=== PATIENT | female | born 1965 | race Caucasian/White ===

== ENCOUNTER 2018-01-31 13:19 | Emergency (ER) | payer BC, OTHER ==
[2018-01-31 13:23] VITALS: BMI 33.0
--- NOTE | 2018-01-31 13:57 | DR.GENAD ---
HPI - PCP Primary Care Physician: Juan Carlos LACEY - HPI Comment HPI Comment: HISTORY BELOW. - Complaint/Symptoms Chief Complaint Doctors Comments: PATIENT IS HAVING FLUTTERING IN [place] AND LT UPPER ABDOMEN AREA. TWO DAYS AGO PRESSURE IN MID LOWER CHEST AREA THAT RESOLVE. NO CHEST PAIN TODAY. BP ELEVATED. WAS NORMAL FEW DAYS AGO WHEN [facility] ON CURRENT MED. TOOK MED TODAY. Chief Complaint:: PT. C/O OF A FLUTTERING SENSATION TO LEFT SIDE OF ABDOMEN. PT. STATES SHE IS NOT SURE IF IT'S COMING FROM HER ABDOMEN OR CHEST. PT. DENIES CHEST PAIN OR SHORTNESS OF BREATH. - Nurses notes reviewed Nurses Notes Review: Yes - Source History Provided: Patient - Mode of Arrival Mode of Arrival: Ambulatory - Timing Onset of Chief Complaint: 01/31/18 Came on: Suddenly - Duration Duration: Constant Duration: Hours - Severity Severity: Moderate PMH - PMH Past Medical History: Yes Past Medical History: Dyslipidemia, Hypertension Past Surgical History: Yes Surgical History: , [employer]YING [employer] Surgery - Family History History of Family Medical Conditions: Yes Family Medical History: ID, Coronary Artery Disease - Social History Does patient currently use any type of tobacco product: No Have you used tobacco products in the last 12 months: No Type of Tobacco Use: None Does any household member use tobacco: Yes Alcohol Use: None Do you use any recreational Drugs:: No Lives With: Spouse Lives Where: Home - infectious screening In the last 2 months have you had wt loss of >10#?: NO Have you had fever, night sweats or hemotysis?: No Have you traveled outside the country in the last 6 months?: No Isolation: Standard ROS - Review of Systems Constitutional: No Symptoms Reported. negative: Chills, Fever, Weakness, Fatigue Eyes: No Symptoms Reported. negative: Eye Pain, Discharge ENTM: No Symptoms Reported. negative: Ear Pain, Nose Discharge, Nose Congestion , Throat Pain Respiratoy: No Symptoms Reported. negative: Productive Cough, Non-Productive Cough, Short of Breath, Wheezing, Hemoptysis Cardiovascular: Palpitations. negative: Chest Pain Gastrointestinal/Abdominal: Abdominal Pain. negative: Diarrhea, Nausea, Vomiting Genitourinary: No Symptoms Reported. negative: Dysuria, Frequency, Hematuria Neurological: No Symptoms Reported Musculoskeletal: Muscle Pain (FLUTTERING LEFT ABDOMEN.) Integumentary: No Symptoms Reported Hematologic/Lymphatic: No Symptoms Reported Endocrine: No Symptoms Reported All Other Systems: Reviewed and Negative PE - Vital Signs Vitals: Temperature 99.4 F Pulse Rate [Apical] 88 Pulse Rate 115 Respiratory Rate 14 Blood Pressure [Right Arm] 131/85 Blood Pressure 174/86 O2 Sat by Pulse Oximetry 97 - General Limitations: No Limitations General Appearance: Alert - Head Head Exam: Normal Inspection - Eyes Eye exam: Normal Appearance - ENT ENT Exam: Normal External Ear Exam External Ear Exam: Normal External Inspection TM/Canal Exam: Bilateral Normal Nose Exam: Normal Nose Exam Mouth Exam: Normal Inspection Throat Exam: Normal Inspection - Neck Neck Exam: Trachea Midline - Chest Chest Inspection: Symmetric Chest Wall Rise - Respiratory Respiratory Exam: Normal Lung Sounds Bilat Respiratory Exam: Bilateral Clear to Auscultation - Cardiovascular Cardiovascular Exam: Regular Rate, Normal Rhythm, Normal Heart Sounds - Abdominal Exam Abdominal Exam: Normal Bowel Sounds, Soft, Other (SORENESS LUQ ABD.) Abdominal Tenderness: RUQ, Mild - Extremities Extremities Exam: Normal Inspection - Back Back Exam: Normal Inspection - Neurologic Neurological Exam: Alert, Oriented X3. negative: CN II-XII Intact, Motor Sensory Deficit - Psychiatric Psychiatric Exam: Normal Affect, Normal Mood - Skin Skin Exam: Normal Color MDM - Additional Information Additional Information Obtained From: Family - Differential Diagnosis Differential Diagnosis: ABDOMINAL PAIN/FLUTTERING, CHEST FLUTTERING Course - Treatment Treatment: SEE ORDERS. - Education/Counseling Education/Counseling: Patient, Family, Education Educated On: Diagnosis, Needs for Follow Up ROR - Labs Reviewed Laboratory Results Reviewed?: Yes Result Diagrams: 01/31/18 14:05 01/31/18 14:05 Laboratory: WBC 6.2 X10^3/uL (3.6-10.0) 01/31/18 14:05 RBC 4.78 X10^6/uL (3.5-5.4) 01/31/18 14:05 Hgb 14.9 g/dL (12.0-16.0) 01/31/18 14:05 Hct 42.8 % (36.0-47.0) 01/31/18 14:05 MCV 89.5 fL (80.0-100.0) 01/31/18 14:05 MCH 31.2 pg (27.0-34.0) 01/31/18 14:05 MCHC 34.9 g/dL (33.0-35.0) 01/31/18 14:05 RDW 13.1 % (11.6-16.5) 01/31/18 14:05 Plt Count 308 X10^3/uL (150.0-450.0) 01/31/18 14:05 MPV 7.4 fL (7.4-11.0) 01/31/18 14:05 Neut % (Auto) 59.4 % (42.0-75.0) 01/31/18 14:05 Lymph % (Auto) 26.7 % (21.0-51.0) 01/31/18 14:05 [place] % (Auto) 7.0 % (0.0-13.0) 01/31/18 14:05 Eos % (Auto) 5.8 % (0.9-2.9) H 01/31/18 14:05 Baso % (Auto) 1.1 % (0.2-1.0) H 01/31/18 14:05 Neut # (Auto) 3.7 x10^3/uL (2.2-4.8) 01/31/18 14:05 Lymph # (Auto) 1.7 X10^3/uL (1.3-2.9) 01/31/18 14:05 [place] # (Auto) 0.4 x10^3/uL (0.3-0.8) 01/31/18 14:05 Eos # (Auto) 0.4 x10^3/uL (0.0-0.2) H 01/31/18 14:05 Baso # (Auto) 0.1 X10^3/uL (0.0-0.1) 01/31/18 14:05 Absolute Nucleated RBC 0.1 /100WBC 01/31/18 14:05 Sodium 139 mmol/L (136-145) 01/31/18 14:05 Corrected Sodium 139 mmol/L (136-145) 01/31/18 14:05 Potassium 4.1 mmol/L (3.5-5.1) 01/31/18 14:05 Chloride 102 mmol/L (98-107) 01/31/18 14:05 Carbon Dioxide 30.6 mmol/L (21-32) 01/31/18 14:05 BUN 14 mg/dL (7-18) 01/31/18 14:05 Creatinine 0.94 mg/dL (0.55-1.02) 01/31/18 14:05 Est GFR (MDRD) Af Amer > 60 (>60) 01/31/18 14:05 Est GFR (MDRD) Non-Af > 60 (>60) 01/31/18 14:05 Glucose 114 mg/dL (65-99) H 01/31/18 14:05 Calcium 10.1 mg/dL (8.5-10.1) 01/31/18 14:05 Corrected Calcium TNP 01/31/18 14:05 Total Bilirubin 0.40 mg/dL (0.2-1.0) 01/31/18 14:05 AST 21 Units/L (15-37) 01/31/18 14:05 ALT 49 Units/L (12-78) 01/31/18 14:05 Alkaline Phosphatase 77 Units/L (46-116) 01/31/18 14:05 Creatine Kinase 115 Units/L (26-192) 01/31/18 14:05 CK-MB (CK-2) 2.8 ng/mL (0-4.0) 01/31/18 14:05 CK/CKMB % Calc 2.4 % (<4) 01/31/18 14:05 Troponin I 0.00 ng/mL (0-1.5) 01/31/18 14:05 Total Protein 8.1 g/dL (6.4-8.2) 01/31/18 14:05 Albumin 4.3 g/dL (3.4-5.0) 01/31/18 14:05 Globulin 3.8 g/dL (2.5-4.5) 01/31/18 14:05 Albumin/Globulin Ratio 1.1 Ratio (1.1-2.1) 01/31/18 14:05 Amylase 51 Units/L (25-115) 01/31/18 14:05 Lipase 122 Units/L (73-393) 01/31/18 14:05 H. pylori IgG Antibody Negative (NEGATIVE) 01/31/18 14:05 - XRAY XRAY Interpreted by: Radiologist XRAY Findings: REPORT DISCUSS WITH PATIENT. - EKG Rhythm: ST (EKG NOTED.) - Diagnosis Discharge Problem: Fluttering muscles, Fluttering heart Chest pain Qualifiers: Chest pain type: unspecified Qualified Code(s): R07.9 - Chest pain, unspecified Abdominal pain Qualifiers: Abdominal location: left upper quadrant Qualified Code(s): R10.12 - Left upper quadrant pain - Discharge Plan Disposition: 01 HOME, SELF-CARE Condition: Stable Prescriptions: Cyclobenzaprine HCl [FLEXERIL 10 MG *] 10 mg PO HS #15 tab Ibuprofen [MOTRIN TAB 600 MG *] 600 mg PO TID PRN #20 tab PRN Reason: Pain/Inflammation - Follow ups/Referrals Follow ups/Referrals: FADUMO LACEY [Primary Care Provider] - 3 days - Instructions Instructions: Abdominal Pain, Adult, Chest Pain Observation Additional Instructions: RETURN TO ED IF WORSE.
[2018-01-31 14:15] LABS: BASOPHILS # (AUTO) 0.1 X10^3/uL (0.0-0.1); BASOPHILS % (AUTO) 1.1 % (0.2-1.0); EOSINOPHILS # (AUTO) 0.4 x10^3/uL (0.0-0.2); EOSINOPHILS % (AUTO) 5.8 % (0.9-2.9); HEMATOCRIT 42.8 % (36.0-47.0); HEMOGLOBIN 14.9 g/dL (12.0-16.0); LYMPHOCYTES # (AUTO) 1.7 X10^3/uL (1.3-2.9); LYMPHOCYTES % (AUTO) 26.7 % (21.0-51.0); MEAN CORPUSCULAR HEMOGLOBIN 31.2 pg (27.0-34.0); MEAN CORPUSCULAR HGB CONC 34.9 g/dL (33.0-35.0); MEAN CORPUSCULAR VOLUME 89.5 fL (80.0-100.0); MEAN PLATELET VOLUME 7.4 fL (7.4-11.0); MONOCYTES # (AUTO) 0.4 x10^3/uL (0.3-0.8); NEUTROPHILS # (AUTO) 3.7 x10^3/uL (2.2-4.8); NEUTROPHILS % (AUTO) 59.4 % (42.0-75.0); PLATELET COUNT 308 X10^3/uL (150.0-450.0); RED BLOOD COUNT 4.78 X10^6/uL (3.5-5.4); RED CELL DISTRIBUTION WIDTH 13.1 % (11.6-16.5); WHITE BLOOD COUNT 6.2 X10^3/uL (3.6-10.0)
[2018-01-31 15:04] LABS: BLOOD UREA NITROGEN 14 mg/dL (7-18); CALCIUM 10.1 mg/dL (8.5-10.1); CARBON DIOXIDE 30.6 mmol/L (21-32); CHLORIDE 102 mmol/L (98-107); COR NA(FOR HYPERGLY) 139 mmol/L (136-145); CREATININE 0.94 mg/dL (0.55-1.02); SODIUM 139 mmol/L (136-145); eGFR BLACK RACES > 60 (>60); eGFR NON BLACK RACES > 60 (>60)
--- NOTE | 2018-01-31 15:06 | RAD ---
Right hand three views Indication: Third digit PIP joint pain Findings: There is IP joint degenerative change of the right long finger. The PIP joint appears intac t. Remaining joints appear normal. No cortical lucency or malalignment seen. The Impression: No acute osseous abnormality. Minimal degenerative changes as above. Reported By:
[2018-01-31 15:07] LABS: AMYLASE 51 Units/L (25-115); CKMB % 2.4 % (<4); CREATINE KINASE 115 Units/L (26-192); CREATINE KINASE MB 2.8 ng/mL (0-4.0)
--- NOTE | 2018-01-31 15:07 | RAD ---
HISTORY: Left upper quadrant pain. Left-sided chest pain. Study: Upright PA chest with supine and upright abdominal views Comparison: Chest radiograph 10/08/2012 Findings: The lungs are clear. The heart size is normal. No acute bony abnormalities are identified. Scattered large and small bowel gas is present. I see no evidence of bowel obstruction or pneumoperi toneum. Minimal degenerative changes present in the lumbar spine and hips. IMPRESSION: 1. No radiographic evidence of acute cardiopulmonary disease or significant change is noted when com pared to the prior examination. 2. No evidence bowel obstruction or pneumoperitoneum. Reported By:
[2018-01-31 15:08] LABS: LIPASE 122 Units/L (73-393)
[2018-01-31 16:24] VITALS: BP 131/85
[2018-01-31 17:39] LABS: ALANINE AMINOTRANSFERASE 49 Units/L (12-78); ALBUMIN 4.3 g/dL (3.4-5.0); ALKALINE PHOSPHATASE 77 Units/L (46-116); ASPARTATE AMINO TRANSFERASE 21 Units/L (15-37); TOTAL PROTEIN 8.1 g/dL (6.4-8.2)
== END 2018-01-31 16:44 | disposition home or self-care (01) ==
LOC: ER 13:19
DX: R10.12 Left upper quadrant pain (principal); I49.8 Other specified cardiac arrhythmias; M62.838 Other muscle spasm; R07.89 Other chest pain
CPT/HCPCS: 36415; 73130; 74022; 80053; 82150; 82550; 82553; 83690; 84484; 85025; 86677; 93005; 93010; 99283